=== PATIENT | female | born 1990 | race Caucasian/White ===

== ENCOUNTER 2016-12-08 19:46 | Emergency (ER) | payer OTHER ==
[~2016-12-08] VITALS: Ht 162.6 cm; Wt 5.4 kg
[~2016-12-08 19:46] MED LIST: ACYC200C PO
[2016-12-08 19:49] VITALS: BP 140/89; PULSE 117; RESP 16; O2SAT 99
[2016-12-08 20:31] LABS: APPEARANCE,URINE SLIGHTLY CLOUDY (CLEAR,HAZY); COLOR,URINE YELLOW (YELLOW); OCCULT BLOOD,URINE NEGATIVE (NEGATIVE); UROBILINOGEN,URINE NORMAL (NORMAL)
--- NOTE | 2016-12-08 21:06 | ED.REPORT ---
HPI-Abd Pain F Under 40 Date of Service Dec 08, 2016 ED Provider: Sourav Milian MD This is a 26 year old female, presenting to the emergency department complaining of abdominal pain that began two days ago. Describes RLQ abdominal pain, states symptoms are similar to those she experienced with previous pregnancies, thinks she may be . Associated symptoms include nausea. Denies vomiting, fever, chills, constipation, diarrhea, or dysuria. LMP approximately 10/15/16. Nursing Notes Stated Complaint: STOMACH PAIN Chief Complaint: Female Abdominal Pain Nursing Notes Reviewed: Yes Allergies: Coded Allergies: hydromorphone (Verified Adverse Reaction, Severe, SOB,Palpitations, 01/16/16 ) racing heart and could not breathe. Scheduled Acyclovir-Expunged Drug, Do Not Renew! (Acyclovir-Expunged Drug, Do Not Renew!) 200 Mg Capsule 400 MG PO BID General Time Seen by MD: 21:03 Chief Complaint Abdominal pain Hx Obtained From: Patient Arrived By: Walk-in Sudden in Onset?: Yes Onset Occurred: 2 days ago Symptom Duration: Since onset Severity: Current: Mild Pertinent Negative: Pt denies other symptoms : 4 Para: 4 Recent Healthcare: No recent doctor visit, No recent hospitalization Similar Sx Previous: No Past Medical History Past Medical History UTI Past Surgical History denies Smoking History Former Smoker Social History Other Social History: Good social support, Local resident Ambulatory Status Independent Review of Systems Constitutional: Denies: Chills, Fever Respiratory: Denies: Non-productive cough, Shortness of breath Cardiovascular: Denies: Chest pain GI: Reports: Abdominal pain, Nausea, Denies: Constipation, Diarrhea, Vomiting Female: Denies: Dysuria Complete sys rev & neg: except as marked. Physical Exam Initial Vital Signs Vital Signs (First) Date Time Temp Pulse Resp B/P Pulse Ox O2 Delivery O2 Flow Rate FiO2 12/08/16 19:49 36 117 16 140/89 99 Room Air Initial VS: Reviewed, Vital signs abnormal Head / Eyes: Atraumatic, Normocephalic, PERRL ENT: Mucous membranes moist, Conjunctiva normal, No scleral icterus Neck: Supple, Non-tender, Full range of motion Extremities: Vascular intact, Neuro intact, No swelling, No tenderness Skin: Warm, Dry, No cyanosis Neurologic: Alert, Oriented, Nonfocal Psychiatric: Mood/affect normal, Behavior normal, Normal thought content General/Constitutional: Awake, Alert Respiratory / Chest: Breath sounds NL, Breath sounds = bilat, No respiratory distress, No rales, No rhonchi, No wheezing Cardiovascular: Heart rate NL, Regular rhythm, Heart sounds NL, Peripheral circulation NL Abdomen: Soft, BS normoactive Tenderness/Guarding/Rebound: Positive: Tender RLQ... (Mild) Back: Inspection NL, Non-tender, No CVA tenderness Interpretation & Diagnostics Lab Results Interpretation Test 12/08/16 19:53 12/08/16 21:49 Urine Color Yellow (YELLOW) Urine Appearance Slightly cloudy Urine pH 6.0 (5.0-8.0) Urine Specific [place] 1.030 (1.003-1.035) Urine Protein Negativemg/dL (NEG,TRACE) Urine Glucose (UA) Negativemg/dL (NEGATIVE) Urine Ketones Negativemg/dL (NEGATIVE) Urine Occult Blood Negative (NEGATIVE) Urine Nitrite Negative (NEGATIVE) Urine Bilirubin Negative (NEGATIVE) Urine Urobilinogen Normalmg/dL (NORMAL) Urine Leukocyte Esterase Small (NEGATIVE) Urine RBC 0-2/hpf (0-2) Urine WBC >50/hpf (0-5) Urine Epithelial Cells Many/hpf (NONE-MOD) Urine Crystals None seen (NONE SEEN) Urine Bacteria Moderate/hpf (NONE-FEW) Urine Hyaline Casts None/lpf (NONE) Urine Granular Casts None seen (NONE SEEN) Urine Waxy Casts None seen (NONE SEEN) Urine Red Blood Cell Casts None seen (NONE SEEN) Urine White Blood Cell Casts None seen (NONE SEEN) Urine Mucus Present (None Seen) Urine Trichomonas None seen (NONE SEEN) Urine Yeast None (NONE SEEN) Urinalysis Comment None Urine Culture Reflexed Indicated HCG Beta Subunit [id number]/mL Hold [place] Top Tube Received (Received) Re-Eval/Medical Decision Med Decision/Clinical Course 26-year-old female who presents with abdominal pain and some mild dysuria. She is found to be and have a urinary tract infection. Pre-pack of Macrobid was arranged but she left prior to receiving the medication or instructions nursing staff attempted to call her multiple times but there was no answer and the voice box was full. This note is being dictated the day following her visit when I was finally able to get a hold of her. I called in a Macrobid prescription to [facility]. She is doing well and in no particular distress at this time. Counseled Regarding: Diagnosis, Lab results, Need for follow-up, When/why to return to ED Discharge & Departure Primary Impression: Urinary tract infection Additional Impression: Disposition: Home Discharge Condition All VS Reviewed: Yes Condition: Stable Additional Instructions: Patient left prior to written for verbal instructions. As mentioned in the MDM clinical course above I was able to get hold her by phone and instructed her to picker operator her prescription at [facility] for Macrobid 100 mg by mouth twice a day for 10 days, #20. She will follow-up with her OB provider. Referrals: David Kapoor MD (PCP) Scribe Attestation Portions of this note were transcribed by Jo-Ann Pritchard. I, Dr. Milian personally performed the history, physical exam and medical decision-making; I reviewed and confirmed the accuracy of the information in the transcribed note. Signed by: chela Sneed. 12/08/2016, 02:00. Sourav Milian MD Dec 08, 2016 21:06 JO-ANN PRITCHARD Dec 08, 2016 21:08
[2016-12-09] MEDS ORDERED: _Nitrofurantoin Macrocrystal 100 mg Capsule PO SCH (08:30)
--- NOTE | 2016-12-09 08:34 | DRSVH ---
PROCEDURE: US OB<14 WKS+OB TRANSVAG INDICATIONS: RLQ abd pain, r/o appy, ectopic OUTSIDE/PRIOR DATING DATA: Last menstrual period (LMP): None available. LMP-based estimated date of delivery (PRUDENCIO): Not available. First dating scan (date and location): 12/08/2016. Estimated date of delivery (PRUDENCIO) from first dating scan: . TECHNIQUE: Real-time scanning was performed of the fetus and maternal pelvic organs, with image documentation. Endovaginal scanning was also performed to better visualize the fetus and maternal ovaries. COMPARISON: [facility], US, US OB<14 WKS+OB TRANSVAG, 01/16/2016, 22:03. FINDINGS: Embryo: OB-SOFTWARE ENGINEERING ANALYST Ultrasound Procedure Report Early Gestation BiometryGroup Mean Gestational Sac Diameter: - Gestational Age (MGSD): 12.6 mm Olive Rump Length: 3.90 mm Gestational Age (CRL): 6 weeks, 0 days Summary Fetus Summary Heart Rate: 95 bpm Comments: A normal yolk sac is noted. Small sonolucent area adjacent to the gestational sac measurin g 3.6 x 0.4 x 0.6 cm, compatible with small perigestational bleed. Measurement variability in dating: +/- 4 weeks by LMP, +/- 7 days by mean sac diameter (use before 6 weeks gestation if crown-rump length not able to be measured), +/- 5 days by crown-rump length (6-12 weeks gestation). Maternal organs: There is a complex cyst in the left adnexa measuring 1.8 x 2.4 x 1.0 cm. Appendix is not identified. Dilated vessels in pelvis are compared with dominant gonadal veins. IMPRESSION: 1. A single, living intrauterine gestation with the estimated gestational age 6 weeks 0 day based on current ultrasound. cardiac activity is present. 2. Small perigestational bleed. 3. A complex cyst the right ovary. 4. 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 This finding could be related to pelvic congestion syndrome. 5. Appendix is not identified. Acute appendicitis is not excluded. Recommend clinical correlation and followup. No significant discrepancy with the retail shift supervisor radiology preliminary report. Dictated by: Fernanda Greene M.D. on 12/09/2016 at 8:21 Transcribed by: ANA on 12/09/2016 at 8:33 Approved by: Fernanda Greene M.D. on 12/09/2016 at 17:39
== END 2016-12-08 23:01 | disposition home or self-care (01) ==
LOC: SED 19:46
DX: O23.41 Unspecified infection of urinary tract in pregnancy, first trimester (principal); O21.0 Mild hyperemesis gravidarum; Z3A.01 Less than 8 weeks gestation of pregnancy; Z87.891 Personal history of nicotine dependence; Z88.5 Allergy status to narcotic agent

== ENCOUNTER 2017-02-01 04:06 | Emergency (ER) | payer OTHER ==
[~2017-02-01] VITALS: Ht 162.6 cm; Wt 56.8 kg
[2017-02-01 04:13] VITALS: BP 125/78; PULSE 104; RESP 18; O2SAT 100
--- NOTE | 2017-02-01 04:38 | ED.REPORT ---
HPI-Abd Pain F Under 40 Date of Service Feb 01, 2017 ED Provider: Dr. Jake Fowler M.D. A 26 year old [id number] female at 13 weeks presents to the ED with right flank pain onset one hour prior to arrival, while sleeping. The patient denies nausea, vomiting, fever, dysuria, or other symptoms. She was diagnosed with a UTI 1.5 weeks ago but did not take her prescribed antibiotics. Nursing Notes Stated Complaint: KIDNEY PAIN, Chief Complaint: Female Abdominal Pain Nursing Notes Reviewed: Yes Allergies: Coded Allergies: hydromorphone (Verified Adverse Reaction, Severe, SOB,Palpitations, 01/16/16 ) racing heart and could not breathe. Scheduled Acyclovir-Expunged Drug, Do Not Renew! (Acyclovir-Expunged Drug, Do Not Renew!) 200 Mg Capsule 400 MG PO BID Cephalexin (Keflex) 500 Mg Capsule 500 MG PO QID Scheduled PRN Ibuprofen (Ibuprofen) 600 Mg Tablet 600 MG PO QID PRN PRN For Pain Ondansetron ODT (Ondansetron ODT) 8 Mg Tab.rapdis 8 MG PO QID PRN PRN For Nausea General Time Seen by MD: 04:39 Chief Complaint Flank pain right Hx Obtained From: Patient Arrived By: Walk-in Sudden in Onset?: Yes Onset Occurred: 1 - 4 hours ago Symptom Duration: Since onset Location: : Flank right Quality: Painful Severity: Current: Moderate Severity: Maximum: Moderate Associated with: Denies: Dysuria, Fever, Nausea, Vomiting : 7 Para: 4 Pertinent Negative: Relieved by nothing Context Related History: Reports: Current Recent Healthcare: No recent doctor visit Similar Sx Previous: Yes Past Medical History Past Medical History UTI [id number] as of 02/01/2017 Past Surgical History denies Smoking History Former Smoker Social History Other Social History: Good social support, Lives with children, Local resident Ambulatory Status Independent Review of Systems Constitutional: Denies: Fever Respiratory: Denies: Non-productive cough, Shortness of breath GI: Denies: Nausea, Vomiting Female: Reports: Flank pain (Right), Denies: Dysuria Complete sys rev & neg: except as marked. Physical Exam Initial Vital Signs Vital Signs (First) Date Time Temp Pulse Resp B/P Pulse Ox O2 Delivery O2 Flow Rate FiO2 02/01/17 04:13 36.4 104 18 125/78 100 Room Air Initial VS: Reviewed Head / Eyes: Atraumatic, Normocephalic ENT: Conjunctiva normal, No scleral icterus Neck: Supple, Full range of motion Skin: Warm, Dry, No cyanosis Neurologic: Alert, Oriented, Nonfocal Psychiatric: Mood/affect normal, Behavior normal, Normal thought content General/Constitutional: Awake, Alert, No acute distress, Well hydrated Respiratory / Chest: Breath sounds NL, Breath sounds = bilat, No respiratory distress Cardiovascular: Heart rate NL, Regular rhythm, Heart sounds NL Abdomen: Atraumatic, Non-tender Gravid abdomen Back: Full range of motion Flank / Spine / Paraspinal: Positive: Flank tender R Interpretation & Diagnostics URINE DIPSTICK: 1.015 sp gravity 5 pH ++ Leukocyte Esterase Positive Nitrite +++(500) Protein Normal Glucose Normal Urobilinogen ~250 Sadiq/ml Occult Blood Otherwise Negative URINE TEST: Negative Lab Results Interpretation Test 02/01/17 04:30 Urine Color Yellow (YELLOW) Urine Appearance Cloudy (CLEAR,HAZY) Urine pH 6.0 (5.0-8.0) Urine Specific [place] 1.030 (1.003-1.035) Urine Protein 100mg/dL (NEG,TRACE) Urine Glucose (UA) Negativemg/dL (NEGATIVE) Urine Ketones Negativemg/dL (NEGATIVE) Urine Occult Blood Large (NEGATIVE) Urine Nitrite Positive (NEGATIVE) Urine Bilirubin Negative (NEGATIVE) Urine Urobilinogen Normalmg/dL (NORMAL) Urine Leukocyte Esterase Small (NEGATIVE) Urine RBC 3-10/hpf (0-2) Urine WBC >50/hpf (0-5) Urine Epithelial Cells Many/hpf (NONE-MOD) Urine Crystals None seen (NONE SEEN) Urine Bacteria Many/hpf (NONE-FEW) Urine Hyaline Casts None/lpf (NONE) Urine Granular Casts None seen (NONE SEEN) Urine Waxy Casts None seen (NONE SEEN) Urine Red Blood Cell Casts None seen (NONE SEEN) Urine White Blood Cell Casts None seen (NONE SEEN) Urine Mucus Present (None Seen) Urine Trichomonas None seen (NONE SEEN) Urine Yeast None (NONE SEEN) Urinalysis Comment None Urine Culture Reflexed Indicated Re-Eval/Medical Decision Med Decision/Clinical Course Med Decision/Clinical Course: 26-year-old with thirteen week presents with right flank pain. Urine is grossly positive. Offered IV antibiotics to initiate therapy with high chance of success, but she declines. Keflex provided. She is now beyond thirteen weeks and eligible for Zofran for nausea relief. Discharged in stable condition. Source of Hx: Old records Re-Evaluation/Progress : Time of Eval: 04:50 Patient Status: Condition improved Re-Evaluation/Progress Note: Discussed with patient lab results, diagnosis, and plan for discharge. Follow-up and return to the ER instructions given. Patient agrees with plan for care and all questions were addressed. Counseled Regarding: Diagnosis, Lab results, Need for follow-up, When/why to return to ED Discharge & Departure Shift Change Sign-Out Response to Therapy: Improved Primary Impression: Pyelonephritis affecting in second trimester Disposition: Home Discharge Condition All VS Reviewed: Yes Condition: Improved Patient Instructions: Acute Pyelonephritis (ED) Additional Instructions: Keflex four times daily for ten days. Ibuprofen four times daily as needed for pain Follow up with your OB provider. Call today for close follow-up appointment. Urine culture will be available today after tomorrow to assess the sensitivity to Keflex. Zofran if needed for nausea, now that you are past thirteen weeks. Referrals: [facility] (PCP) Manuela Attestation Portions of this note were transcribed by Mellisa Hutchinson. I, Dr. Fowler, personally performed the history, physical exam, and medical decision-making; I reviewed and confirmed the accuracy of the information in the transcribed note. Signed by: Manuela Pruitt, 02/01/2017, 05:25 copies to: [facility] Christopher W MD Feb 01, 2017 04:37 MELLISA HUTCHINSON Feb 01, 2017 04:48
[2017-02-01 04:41] LABS: APPEARANCE,URINE CLOUDY (CLEAR,HAZY); COLOR,URINE YELLOW (YELLOW); OCCULT BLOOD,URINE LARGE (NEGATIVE); UROBILINOGEN,URINE NORMAL (NORMAL)
[2017-02-01] MEDS ORDERED: ONDA8TAB10 PO (04:57)
[2017-02-01] MEDS ORDERED: CEPH-512 PO (04:57)
[2017-02-01] MEDS ORDERED: IBUP-1827 PO (04:57)
[2017-02-01 05:12] VITALS: BP 126/82; PULSE 99; RESP 17; O2SAT 100
== END 2017-02-01 05:13 | disposition home or self-care (01) ==
LOC: SED 04:06
DX: O23.01 Infections of kidney in pregnancy, first trimester (principal); B96.20 Unspecified Escherichia coli [E. coli] as the cause of diseases classified elsewhere; Z3A.13 13 weeks gestation of pregnancy; Z87.891 Personal history of nicotine dependence; Z88.5 Allergy status to narcotic agent

== ENCOUNTER 2017-07-13 22:46 | Inpatient (IN) | payer OTHER ==
[~2017-07-13] VITALS: Ht 163.2 cm; Wt 65.8 kg
[~2017-07-13 22:46] MED LIST changes: +CEPH-512 PO; +IBUP-1827 PO; +ONDA8TAB10 PO
[2017-07-14] MEDS ORDERED: Hemorrhage Kit, Post Partum XX ONE ×3 (00:20→11:15)
[2017-07-14] MEDS ORDERED: Sodium Chloride LOK Flush 10 mL Syringe IVFLUSH PRN (00:20)
[2017-07-14] MEDS ORDERED: Oxytocin 10 Unit/mL Inj IM PRN ×2 (00:20→11:15)
[2017-07-14] MEDS ORDERED: Oxytocin 30 Units/500 mL LR 30 UNITS in IV Premix 1 EACH IV PRN ×2 (00:20→11:15)
[2017-07-14] MEDS ORDERED: Carboprost 250 mCg/mL Inj IM PRN ×2 (00:20→11:15)
[2017-07-14] MEDS ORDERED: Methylergonovine 0.2 mg/mL Inj IM PRN ×2 (00:20→11:15)
[2017-07-14 00:43] LABS: Mean Corpuscular Hemoglobin 29.9 pg (27.0-35.0); Mean Corpuscular Volume 87.8 fL (81-100)
[2017-07-14] MEDS ORDERED: Ondansetron 2 mg/mL 2 mL Inj IVPUSH PRN (01:15)
--- NOTE | 2017-07-14 02:55 | HP ---
[address] [address] HISTORY AND PHYSICAL PATIENT: MARCI REYNOLDS : 1990 MR#: [id number] ADMIT: 07/14/2017 JOB ID: [id number] CHIEF COMPLAINT: Contractions. HISTORY OF PRESENT ILLNESS: This is a 26-year-old 7, para 4-0-2-4 with expected date of delivery of August 02, 2017, dated by last menstrual period and consistent with 15-week ultrasound. Today, the patient is at 37 weeks and 1 day. She presented with contractions and increased pelvic pressure. On cervical exam, cervix was 1 cm earlier at the office today and, at presentation to the triage room, cervix was 1.5 cm. Then, in reassessment one to two hours later, the cervix was 3 cm dilated. The patient denies loss of fluid, denies vaginal bleeding. She reports good movement, though she did notice some decrease in movement earlier in the day today. PROBLEM LIST DURING THIS : 1. Anxiety. The patient was on amitriptyline 10 mg per day. That was stopped several months ago. 2. History of migraine headaches. She was on Fioricet, which was stopped several months ago. 3. History of E. coli UTI during . 4. History of labor at 34 weeks of gestation in 2014. Then, she was induced at 37 weeks for suspected nonreassuring heart tones. 5. History of IUGR and induction of labor at 38 weeks in the 2014 . 6. History of scoliosis since age 14 with chronic back pain. The patient had epidural during her previous deliveries with no complications. 7. Tobacco use. She smokes five cigarettes per day. She used to smoke 1-1/2 packs per day. 8. History of gonorrhea, chlamydia and Trichomonas. Negative screening during this . 9. 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 No current outbreak. 10. History of elective termination of with suction D and C. 11. History of ASCUS Pap. 12. Desires permanent sterilization. The patient signed consent on May 28, 2017. 13. History of hemorrhage in the 2016 delivery. 14. Vitamin D deficiency. PAST GYNECOLOGIC HISTORY: Menarche at age 10 or 11. Regular menstrual cycles. For control, she used patches, pills and Implanon in the past and she considered Mirena IUD use. Last menstrual period was August 02, 2017. PAST OBSTETRIC HISTORY: 1. First was in 2009. It was a miscarriage. 2. Second was in 2010. Spontaneous vaginal delivery under epidural anesthesia. Outcome was a 7 pound 14 ounce . 3. Third was in 2011. Spontaneous vaginal delivery under epidural anesthesia. She delivered a 6 pound 15 ounce infant. 4. Fourth was in 2013. Delivered via spontaneous vaginal delivery under epidural anesthesia a 5 pound 10 ounce . 5. Fifth was an in 2014. 6. Sixth was in 2015. Spontaneous vaginal delivery under epidural anesthesia of a 6 pound 9 ounce infant. The patient was induced at 37 weeks. 7. All other deliveries were term deliveries. PAST MEDICAL HISTORY: See the problem list above. PAST SURGICAL HISTORY: D and C. FAMILY HISTORY: Mother is healthy. Father is healthy. Brother has diabetes. Grandparents had diabetes. She denies a family history of twinning, congenital deformities or mental or developmental disease. ALLERGIES: Denies known drug allergies. MEDICATIONS: vitamins, valacyclovir. SOCIAL HISTORY: She is a smoker. Denies alcohol or illicit drug abuse. REVIEW OF SYSTEMS: A 10-point review of systems is negative, except for the items in the history of present illness. PHYSICAL EXAMINATION: Blood pressure 127/78, heart rate 116, temperature 36.9. heart tones baseline 130 with moderate variability, positive accelerations and no decelerations. Contractions every two to four minutes. General: Alert and oriented to time, place and person. Head: Normocephalic, atraumatic. Neck: Supple. Chest: Equal air entry bilaterally. No added sounds. Cardiovascular: Regular rate and rhythm. Abdomen: Gravid. No tenderness. Estimated weight is 6.5 pounds. Pelvic exam: Speculum exam was performed. No evidence of herpetic lesions. Skin tags noted at the perineum. The patient confirmed no change in size or number of skin tags. The patient denies any painful perineal lesions or any prodromal symptoms. No cervical or vaginal lesions noted with speculum exam. The cervix is 4 cm, 50% effaced and -2 station. Mid position. LABORATORY DATA: labs: Blood type is A-positive. Rubella immune, RPR nonreactive, hepatitis B surface antigen nonreactive. HIV screening negative. Tests done on February 04, 2017. Gonorrhea and Chlamydia negative. Urine drug screening negative on February 04, 2017. History of E. coli UTI on March 02, 2017. Repeat gonorrhea and chlamydia screening was negative on March 02, 2017. Quad screen negative for neural tube defect, Down's syndrome and trisomy 18. Admission labs: White blood cells 12.4, hemoglobin 10, hematocrit 29.4, platelets 252. Urine drug screen is pending. ASSESSMENT: 1. This is a 26-year-old 7, para 4-0-2-4, at 37 weeks and 1 day gestation, in early labor. 2. Group B Streptococcus was negative on July 09, 2017. 3. History of herpes simplex virus with no recent outbreak in the past several years. On suppressive therapy. No lesions per admission speculum examination. 4. The patient desires permanent sterilization. 5. She is a smoker. 6. History of hemorrhage. PLAN: Admit with orders and labs. Continue conservative management. Reassess the cervix in the morning. If no significant cervical change and contractions space out, we may consider discharge home if active labor is ruled out. The plan of care was discussed with the patient. The patient is in agreement.
[2017-07-14] MEDS: fentaNYL-PF 50 mCg/mL 2 mL Inj IVPUSH PRN ×4 (07:14→08:38)
[2017-07-14] MEDS: Lactated Ringer's 1,000 ML IV PRN ×2 (08:41→10:59)
--- NOTE | 2017-07-14 09:59 | PCM.HPANE ---
Patient Data Date of Service: Jul 14, 2017 Surgeon Admitting Provider:Magen Chong MD Attending Provider:Magen Chong MD Primary Care Physician:Jorge Clemente MD Other Provider: Reason for Visit Active Labor ACTIVE LABOR Ht/WT & BMI Height (Centimeters): 163.2 Weight (Kilograms): 65.77 Body Mass Index Allergies Coded Allergies: hydromorphone (Verified Adverse Reaction, Severe, SOB,Palpitations, 01/16/16 ) racing heart and could not breathe. Past Anesthesia History Anesthesia History: Denies:: Abnormal Airway, Anesthesia Reactions, Fam Anesthesia Reaction Diabetes History Hx Diabetes?: No MRSA MRSA: No Medications Hypertension Medication: No Home Meds Incl Beta Deshaun: No Active Scripts Ibuprofen 600 Mg [id number] Mg PO QID PRN For Pain #30 TABLET Prov:Jake Fowler MD 02/01/17 Ondansetron ODT 8 Mg Tab.rapdis8 Mg PO QID PRN For Nausea #20 TABLET Prov:Jake Fowler MD 02/01/17 Cephalexin (Keflex)500 Mg [id number] Mg PO QID #40 CAPSULE Prov:Jake Fowler MD 02/01/17 Reported Medications Acyclovir-Expunged Drug, Do Not Renew! 200 Mg [id number] Mg PO BID 05/20/11 History History of ENT Problems?: No HEENT History: Denies:: Abnormal Airway Denture Type: None Teeth Condition: Within Normal Limits Hx of Heart Problems?: No Cardiovascular History: Denies:: Congestive Heart Failure Hypertension Valvular Heart Disease Hx of Respiratory Problem?: No Respiratory History: Denies:: Asthma Tuberculosis Hx Neurologic Problems?: No Hx of GI Problems?: No Hx of Problems?: No HX of Peritoneal Dialysis: No Female Hx: Positive for:: Currently Hx Musculoskeletal Problems?: Yes (thoracolumbar scoliosis convex left) Hx of Psycho/Social Problems?: No Hx Surgeries?: No Hx Any Other Health Problems?: No Hx Diabetes: No Hx Alcohol Use: NoHx Substance Use: No Smoking Status: Former Smoker Have You Smoked inLast 12 mo: Yes Stop/Bang Risk Assessment Category Category 1A: Patient has history of documented sleep apnea, and HAS NOT received any narcotic, sedative or anesthesia administration during this stay. Category 1B: Patient has history of documented sleep apnea, and HAS received any narcotic , sedative or anesthesia administration during this stay Category 2: Patient has SUSPECTED Obstructive Sleep Apnea, and HAS received any narcotic , sedative or anesthesia administration during this stay. Category 3: Patient has SUSPECTED Obstructive Sleep Apnea and HAS NOT received narcotic, sedative or anesthesia administration during this stay. Category 4: Outpatient in Procedural Areas with known sleep apnea or who screen positive for High Risk via the STOP/BANG questionnaire. Exam Exam General Appearance: Alert, Oriented X3, Cooperative, Moderate Distress (labor pain) HEENT/AIRWAY: MP 2 Lungs: Clear to Auscultation, Normal Air Movement Heart: Exam Unremarkable, Regular Rate/Rhythm, No Murmurs/Rubs/Gallops Meds/Labs/Diagnostics Admission Meds Current Medications Valacyclovir HCl (Valtrex) 500 mg BID PO Last administered on 07/14/17t 07:46; Start 07/14/17 at 01:55 Labs Test 07/14/17 00:30 07/14/17 01:35 White Blood Count 12.4th/mm3 (3.8-10.1) Red Blood Count 3.35mil/mm3 (3.90-5.20) Hemoglobin 10.0g/dL (12.0-15.6) Hematocrit 29.4% (35.0-46.0) Mean Corpuscular Volume 87.8fL (81-100) Mean Corpuscular Hemoglobin 29.9pg (27.0-35.0) Mean Corpuscular Hemoglobin Concent 34.0% (32.0-37.0) Red Cell Distribution Width 13.0% (12.3-15.4) Platelet Count 252bil/L (150-400) Hold Urine Received (Received) Urine Opiates Screen Negative Urine Methadone Screen Negative Urine Barbiturates Screen Negative Urine Amphetamines Screen Negative Urine Benzodiazepines Screen Negative Urine Cocaine Metabolite Screen Negative Urine Cannabinoids Screen Negative Plan Impression Patient chart reviewed, patient interviewed and anesthestic plan with risks, benefits, and alternatives discussed, and informed consent obtained. ASA Physical Status: ASA2 Mod Systemic Disease Anesthetic Plan: Epidural Other Patient pushing and baby by the time setup for procedure so epidural aborted. Fam Giraldo MD Jul 14, 2017 09:59
[2017-07-14] MEDS ORDERED: fentaNYL-PF 50 mCg/mL 2 mL Inj ONE ×2 (10:15→10:19)
[2017-07-14] MEDS ORDERED: Bupivacaine-MPF 0.25% 30 mL Inj ONE (10:19)
--- NOTE | 2017-07-14 11:04 | PCM.HPANE ---
Patient Data Date of Service: Jul 14, 2017 Surgeon Admitting Provider:Magen Chong MD Attending Provider:Magen Chong MD Primary Care Physician:Jorge Clemente MD Other Provider: Reason for Visit Active Labor ACTIVE LABOR Ht/WT & BMI Height (Centimeters): 163.2 Weight (Kilograms): 65.77 Body Mass Index Allergies Coded Allergies: hydromorphone (Verified Adverse Reaction, Severe, SOB,Palpitations, 01/16/16 ) racing heart and could not breathe. Past Anesthesia History Anesthesia History: Denies:: Abnormal Airway, Anesthesia Reactions, Fam Anesthesia Reaction Diabetes History Hx Diabetes?: No MRSA MRSA: No Medications Hypertension Medication: No Home Meds Incl Beta Deshaun: No Active Scripts Ibuprofen 600 Mg [id number] Mg PO QID PRN For Pain #30 TABLET Prov:Jake Fowler MD 02/01/17 Ondansetron ODT 8 Mg Tab.rapdis8 Mg PO QID PRN For Nausea #20 TABLET Prov:Jake Fowler MD 02/01/17 Cephalexin (Keflex)500 Mg [id number] Mg PO QID #40 CAPSULE Prov:Jake Fowler MD 02/01/17 Reported Medications Acyclovir-Expunged Drug, Do Not Renew! 200 Mg [id number] Mg PO BID 05/20/11 History History of ENT Problems?: No HEENT History: Denies:: Abnormal Airway Denture Type: None Teeth Condition: Within Normal Limits Hx of Heart Problems?: No Cardiovascular History: Denies:: Congestive Heart Failure Hypertension Valvular Heart Disease Hx of Respiratory Problem?: No Respiratory History: Denies:: Asthma Tuberculosis Hx Neurologic Problems?: No Hx of GI Problems?: No Hx of Problems?: No HX of Peritoneal Dialysis: No Female Hx: Positive for:: Currently Hx Musculoskeletal Problems?: Yes (thoracolumbar scoliosis convex left) Hx of Psycho/Social Problems?: No Hx Surgeries?: No Hx Any Other Health Problems?: No Hx Diabetes: No Hx Alcohol Use: NoHx Substance Use: No Smoking Status: Former Smoker Have You Smoked inLast 12 mo: Yes Stop/Bang Risk Assessment Category Category 1A: Patient has history of documented sleep apnea, and HAS NOT received any narcotic, sedative or anesthesia administration during this stay. Category 1B: Patient has history of documented sleep apnea, and HAS received any narcotic , sedative or anesthesia administration during this stay Category 2: Patient has SUSPECTED Obstructive Sleep Apnea, and HAS received any narcotic , sedative or anesthesia administration during this stay. Category 3: Patient has SUSPECTED Obstructive Sleep Apnea and HAS NOT received narcotic, sedative or anesthesia administration during this stay. Category 4: Outpatient in Procedural Areas with known sleep apnea or who screen positive for High Risk via the STOP/BANG questionnaire. Exam Exam General Appearance: Alert, Oriented X3, Cooperative, Moderate Distress (labor pain) HEENT/AIRWAY: MP 2 Lungs: Clear to Auscultation, Normal Air Movement Heart: Exam Unremarkable, Regular Rate/Rhythm, No Murmurs/Rubs/Gallops Meds/Labs/Diagnostics Admission Meds Current Medications Valacyclovir HCl (Valtrex) 500 mg BID PO Last administered on 07/14/17t 07:46; Start 07/14/17 at 01:55 Labs Test 07/14/17 00:30 07/14/17 01:35 White Blood Count 12.4th/mm3 (3.8-10.1) Red Blood Count 3.35mil/mm3 (3.90-5.20) Hemoglobin 10.0g/dL (12.0-15.6) Hematocrit 29.4% (35.0-46.0) Mean Corpuscular Volume 87.8fL (81-100) Mean Corpuscular Hemoglobin 29.9pg (27.0-35.0) Mean Corpuscular Hemoglobin Concent 34.0% (32.0-37.0) Red Cell Distribution Width 13.0% (12.3-15.4) Platelet Count 252bil/L (150-400) Hold Urine Received (Received) Urine Opiates Screen Negative Urine Methadone Screen Negative Urine Barbiturates Screen Negative Urine Amphetamines Screen Negative Urine Benzodiazepines Screen Negative Urine Cocaine Metabolite Screen Negative Urine Cannabinoids Screen Negative Plan Impression Patient chart reviewed, patient interviewed and anesthestic plan with risks, benefits, and alternatives discussed, and informed consent obtained. ASA Physical Status: ASA2 Mod Systemic Disease Anesthetic Plan: SAB (intrathecal analgesia) Bene/Risks/Altern/Consents: Yes HP Complete Prior to Induction: Yes Fam Giraldo MD Jul 14, 2017 11:04
[2017-07-14] MEDS: Lactated Ringer's 1,000 ML IV SCH ×2 (11:12→19:12)
[2017-07-14] MEDS ORDERED: Witch Hazel-Glycerin Pads TOPICAL PRN (11:15)
[2017-07-14] MEDS ORDERED: Benzocaine (Dermoplast) 20% 60 Gm Spray TOPICAL PRN (11:15)
[2017-07-14] MEDS ORDERED: LANOlin HPA 7 Gm Ointment TOPICAL PRN (11:15)
--- NOTE | 2017-07-14 12:02 | OP ---
[address] [address] OPERATIVE REPORT PATIENT: MARCI REYNOLDS : 1990 MR#: [id number] ADMIT: 07/14/2017 JOB ID: [id number] DATE OF SURGERY: 07/14/2017 PREOPERATIVE DIAGNOSIS(ES): A 26-year-old 7, para 4-0-2-4 at 37 weeks and 2 days by LMP, confirmed by 15 week ultrasound, admitted in active labor. Had artificial rupture of membranes with clear fluid at 9 a.m. The patient was 9 cm dilated, 90% effaced, -1 station. The patient progressed to fully dilated, 0 station. Dark red fluid started to be observed leaking. The patient refused to push without any analgesia, received intrathecal analgesia, and started to push efficiently. POSTOPERATIVE DIAGNOSIS(ES): A 26-year-old 7, para 4-0-2-4 at 37 weeks and 2 days by LMP, confirmed by 15 week ultrasound, admitted in active labor. Had artificial rupture of membranes with clear fluid at 9 a.m. The patient was 9 cm dilated, 90% effaced, -1 station. The patient progressed to fully dilated, 0 station. Dark red fluid started to be observed leaking. The patient refused to push without any analgesia, received intrathecal analgesia, and started to push efficiently. PROCEDURE: Spontaneous vaginal delivery. SURGEON: Uzma Bradford MD ANESTHESIA: Intrathecal analgesia. ESTIMATED BLOOD LOSS: 200 mL. COMPLICATIONS: Suspected placental abruption. Placenta sent to Pathology. DESCRIPTION OF PROCEDURE: The patient started to push efficiently. Infant head delivered in right occiput anterior position spontaneously, followed the shoulders and the rest of the body. Delayed cord clamping allowed for 60 seconds. placed over mom's chest. Cord clamped and cut. Placenta followed spontaneously. Upon inspection, it was noted to be intact, with three-vessel cord centrally inserted. Firm uterine fundus with no blood clots retrieved after delivery of the placenta. Inspection of the perineum revealed no perineal lacerations. ESTIMATED BLOOD LOSS: 200 mL. FINDINGS: Single viable male with Apgars 8/9. Weight is still pending. Discussed tubal sterilization with the patient as she previously consented for sterilization. She changed her mind and she is interested in a hormonal IUD. Will arrange for office insertion at 6 weeks . Please note H and H on admission was 10 and 29.4, and the patient will be started on iron and vitamin C . The patient tolerated the procedure well. Mom and baby recovering in stable condition in labor and delivery room. Dr. Bradford was present and scrubbed for the entire procedure. Good hemostasis assured. Sponge and instrument counts were correct x2.
[2017-07-14] MEDS: Ascorbic Acid 500 mg Tablet PO SCH (18:04)
--- NOTE | 2017-07-14 18:51 | NUR ---
Social Work Note D/A/P: ENROLLMENT MANAGEMENT COORDINATOR received the referral. [facility] MD ordered ENROLLMENT MANAGEMENT COORDINATOR consultation. ENROLLMENT MANAGEMENT COORDINATOR spoke with [facility]BC cnc operator Faiza and the decision was made that ENROLLMENT MANAGEMENT COORDINATOR would see Pt first thing in the morning. CORY Pedroza, AAC
[2017-07-15] MEDS: Lactated Ringer's 1,000 ML IV SCH ×2 (03:12→11:12)
[2017-07-15 06:12] LABS: Mean Corpuscular Hemoglobin 29.7 pg (27.0-35.0); Mean Corpuscular Volume 87.5 fL (81-100)
[2017-07-15] MEDS: Ascorbic Acid 500 mg Tablet PO SCH (08:00)
--- NOTE | 2017-07-15 08:53 | PCM.DIOB ---
Obstetrical Disch Instruction Date of Service: Jul 15, 2017 Dates of Hospitalization Date of Hospital Admission Jul 14, 2017 at 00:20 Providers Admitting Physician: Magen Chong MD Primary Care Physician: Jorge Clemente MD Attending Physician: Magen Chong MD Discharge Diagnosis Discharge Diagnosis PPD#1 S/P . Anemia. Problems: Diet Discharge Diet: No restrictions Activity Discharge Activity-General: Pelvic Rest for 6 weeks, No lifting >10 pounds for 4-6 weeks Dressing and Incisional Care Hygiene: May shower Follow Up Plan Follow-up appointment: Weeks (2) Call your provider for: Fever or Chills, Shortness of breath, Heavy vaginal bleeding, Other (excessive pain not controlled with pain medications, ) Uzma Bradford MD Jul 15, 2017 08:53
[2017-07-15] MEDS ORDERED: Ascorbic Acid PO (08:58)
[2017-07-15] MEDS ORDERED: DOCU-41 PO (08:58)
[2017-07-15] MEDS ORDERED: IBUP-1827 PO (08:58)
[2017-07-15] MEDS ORDERED: FERR-74 PO (08:58)
[2017-07-15 09:23] VITALS: BP 118/65; PULSE 68; RESP 18
--- NOTE | 2017-07-15 09:48 | NUR ---
Social Work: Family Assessment Data: See initial assessment. Patient is a 26 year old female who was admitted on 07/14/2017 for active labor per H&P. Patient insurance is [employer] and her PCP is Dr. Jorge Clemente. EMR reviewed. SW met with patient to discuss discharge planning. SW role explained. Patient informed SW that she, FORashid, and their children live at [address] in [place]; phone ([phone]). Patient states that she now has a total of five children that will be living in the home: 6 yo Yoandy Tate, 4 yo Rosalva Deutsch, 3 yo Sanjana Deutsch, 10 mo Radha Deutsch, and Claudia Jr eGt. Patient denies any hx of substance abuse. Patient denies any hx of mental health or current issues; Patient states that she does not work but FOB works at [employer]. Patient confirms that she does receive food stamps, WIC, and housing assistance. Patient states that she recently received an eviction notice but is working on [employer]. Patient states that she has until 08/14/17 to be out of the home but feels confident that she will win the appeal. SW inquired about a back up plan if patient did not win the appeal. Patient states that she has family in [place], [place] and she will obtain housing there. Patient states that she considers FOB and her mother to be sources of support. Patient confirms that CPS is involved and that her case is scheduled to close on Wednesday. Patient states that a report was made to CPS by one of her neighbors. Patient states that a neighbor saw that her children did not have any sheets on their beds and notified CPS. Patient states that the sheets were being washed which was why they weren't on the bed. SW provided patient with a packet of resources. Patient confirms that upon discharge, transportation will be provided by FOB. SW provided patient with a discharge planning checklist booklet and encouraged to call with any questions/concerns. Phone number provided. SW contacted CPS to confirm that patient had an open case. SW called and left a voice message for CORY Tee CPS/FRS YOLIE ([phone]). Ashley's card was attached to patient's chart. SW called [phone] and spoke with Suzie Alejandro on the CPS Intake Line. Suzie informed DARRIAN that there is documented concerns about patient's living situation. Suzie states that a report was notated on 07/13/17 regarding unhealthy living situations. Suzie informed DARRIAN that she would need to contact the office of Ashley Leonardo to obtain further information in order to decide if baby could discharge home with MOB. Suzie later called DARRIAN back and stated that case has been staffed with fitness supervisor and baby would be allowed to discharge home with MOB. DARRIAN contacted primary RN Komal to notify her that baby would be able to discharge home today with mom. No additional concerns were noted by primary RN. Assessment: Patient and will discharge home. Plan: Patient and will discharge home once medically stable. Transportation will be provided by FOB via POV. [facility] has confirmed that baby will be able to discharge home with MOB and FOB. No additional needs are anticipated at this time. CORY John Addendum: 07/15/17 at 1118 by PIERO WEBER Amended: Links added.
--- NOTE | 2017-07-15 10:04 | DIS ---
[address] [address] DISCHARGE SUMMARY PATIENT: MARCI REYNOLDS : 1990 MR#: [id number] ADMIT: 07/14/2017 JOB ID: [id number] DIS: 07/15/2017 REASON FOR ADMISSION: Active labor. DISCHARGE DIAGNOSIS: day #1 status post spontaneous vaginal delivery and anemia. HOSPITAL COURSE: For further details, please refer to the fully dictated notes. On the day of discharge, the patient had no complaints. Voiding, ambulating, tolerating p.o. intake, with no difficulties. Vital signs are 118/65 for blood pressure. Respirations are 18, pulse is 68, temperature 36.5 degrees centigrade. Heart is regular rate and rhythm. Positive S1, S2. Lungs clear to auscultation bilaterally. Abdomen firm. Uterine fundus palpated at the level of the umbilicus. Nontender. Positive bowel sounds. Nondistended abdomen. Perineum: No active bleeding. Lower extremities: No calf tenderness appreciated bilaterally. H and H this morning is 9.5 and 28.0. Platelets are 232. White blood count is 11.7. The patient declined tubal sterilization and she opted for a IUD. DISCHARGE PLAN: The patient will be discharged home in stable condition. Will followup with Dr. Bradford in the office in two weeks. Instructed to have nothing in the vagina for six weeks. No heavy lifting more than baby's weight. Instructed to call for fever, chills, severe abdominal pain uncontrolled with medication, heavy vaginal bleeding, or any other concerning symptoms. DISCHARGE MEDICATIONS: 1. Ibuprofen 600 mg every 6 hours. 2. vitamins once daily. 3. Colace 100 mg twice daily. 4. Ferrous sulfate 325 mg twice daily. 5. Vitamin C 500 mg twice daily. The patient understood the discharge instructions. She will comply with her discharge plan.
== END 2017-07-15 12:45 | disposition home or self-care (01) | DRG 775 ==
LOC: FBCO 22:46 → FBC 07-14 00:20
PROVIDERS: ADMIT Obstetrics & Gynecology; ATTEND Obstetrics & Gynecology
PROC: 10E0XZZ Delivery of Products of Conception, External Approach (ICD-10-PCS; principal; 2017-07-14)
PROC: 10907ZC Drainage of Amniotic Fluid, Therapeutic from Products of Conception, Via Natural or Artificial Opening (ICD-10-PCS; 2017-07-14)
DX: O90.81 Anemia of the puerperium (principal); D64.9 Anemia, unspecified; O99.334 Smoking (tobacco) complicating childbirth; Z3A.37 37 weeks gestation of pregnancy; Z37.0 Single live birth